=== PATIENT | male | born 1980 | race Caucasian/White ===

== ENCOUNTER 2022-05-07 12:40 | Emergency (ER) | payer OTHER, MEDICAID ==
[~2022-05-07] VITALS: Ht 175.3 cm; Wt 132.0 kg
[2022-05-07 13:10] VITALS: BP_SYST 117
[2022-05-07] MEDS ORDERED: IBUP-1971 PO ×2 (13:21→13:22)
[2022-05-07] MEDS ORDERED: KETOROLAC TROMETHAMINE 60 MG/2 ML VIAL IM ONE (13:30)
[2022-05-07] MEDS ORDERED: HYDROcodone/ACETAMIN 10-325 MG TAB PO ONE (13:30)
--- NOTE | 2022-05-07 13:37 | NUR ---
DR JONES IN TRIAGE FOR EXAM
[2022-05-07] MEDS ORDERED: HYDR-3917 PO (14:12)
--- NOTE | 2022-05-07 14:13 | NUR ---
PT BACK FROM XRAY, PLACED IN CHAIR 1, MEDICATED ORDERED.
--- NOTE | 2022-05-07 15:38 | NUR ---
Patient given written and verbal discharge instructions and verbalizes understanding. ER MD discussed with patient the results and treatment provided. Patient in stable condition. ID arm band removed. Rx of NORCO, IBUPROFEN given. Patient educated on pain management and to follow up with PMD. Pain Scale . Opportunity for questions provided and answered. Medication side effect fact sheet provided.
[2022-05-07 15:39] VITALS: BP_SYST 128
== END 2022-05-07 15:38 | disposition home or self-care (01) ==
LOC: SED 12:40
DX: M54.50 Low back pain, unspecified (principal); G89.29 Other chronic pain; M25.561 Pain in right knee; Z88.0 Allergy status to penicillin; Z79.899 Other long term (current) drug therapy
CPT/HCPCS: 99283; 72100; 73560; 96372; J1885

== ENCOUNTER 2022-06-06 00:32 | Inpatient (IN) | payer OTHER, MEDICAID ==
[~2022-06-06] VITALS: Ht 175.3 cm; Wt 129.3 kg
[~2022-06-06 00:32] MED LIST: HYDR-3917 PO; IBUP-1971 PO
[2022-06-06 00:50] VITALS: BP_SYST 182
[2022-06-06] MEDS ORDERED: CYCLOBENZAPRINE HCL 10 MG TABLET (FLEXERIL) PO ONE (02:00)
[2022-06-06] MEDS ORDERED: KETOROLAC TROMETHAMINE 30 MG VIAL IM ONE (02:00)
[2022-06-06] MEDS ORDERED: ACETAMINOPHEN 500 MG TABLET PO ONE (02:00)
[2022-06-06] MEDS ORDERED: OXYCODONE/ACETAMINOPHEN 5-325 TABLET PO ONE (02:00)
[2022-06-06] MEDS ORDERED: LIDOCAINE PATCH 5% 1 EA TP ONE (02:00)
[2022-06-06] MEDS ORDERED: MORPHINE 4 MG INJ. 4 MG/ML VIAL IVP ONE (03:30)
[2022-06-06 03:43] LABS: BASOPHILS # (AUTO) 0.1 K/uL (0.0-0.2); BASOPHILS % (AUTO) 0.7 % (0.0-2.0); EOSINOPHILS # (AUTO) 0.1 K/uL (0.0-0.4); EOSINOPHILS % (AUTO) 1.7 % (0.0-4.0); HEMATOCRIT 44.4 % (36-54); HEMOGLOBIN 14.8 g/dL (14.0-18.0); LYMPHOCYTES # (AUTO) 2.1 K/uL (1.0-5.5); LYMPHOCYTES % (AUTO) 25.7 % (20.5-51.5); MEAN CORPUSCULAR HEMOGLOBIN 30 pg (27-31); MEAN CORPUSCULAR HGB CONC 33 % (32-36); MEAN CORPUSCULAR VOLUME 89 fL (79.0-98.0); MONOCYTES # (AUTO) 0.8 K/uL (0.0-1.0); MONOCYTES % (AUTO) 10.1 % (1.7-9.3); NEUTROPHILS # (AUTO) 5.1 K/uL (1.8-7.7); NEUTROPHILS % (AUTO) 61.8 % (40.0-70.0); PLATELET COUNT (AUTO) 216 K/uL (130-430); RED BLOOD CELL COUNT(AUTO) 4.99 MIL/uL (4.2-6.2); RED CELL DISTRIBUTION WIDTH 13.7 % (9.0-15.0); WHITE BLOOD COUNT (AUTO) 8.2 K/uL (4.8-10.8)
[2022-06-06 03:47] LABS: ERYTHROCYTE SEDIMENTATION RATE 15 MM/HR (0-15)
[2022-06-06 03:54] LABS: CALCIUM 8.5 mg/dL (8.4-11.0); CREATININE 0.84 mg/dL (0.55-1.30)
[2022-06-06 03:58] LABS: ALBUMIN 3.2 g/dL (3.4-4.8); C-REACTIVE PROTEIN QUANT 1.4 mg/dL (0-0.5); TOTAL BILIRUBIN 0.7 mg/dL (0.0-1.0)
[2022-06-06 04:04] LABS: BILIRUBIN,URINE NEGATIVE (NEGATIVE); BLOOD, URINE TRACE (NEGATIVE); COLOR,URINE YELLOW (YELLOW); GLUCOSE,URINE 3+ (NEGATIVE); KETONES,URINE NEGATIVE (NEGATIVE); LEUKOCYTE ESTERASE ,URINE TRACE (NEGATIVE); NITRITE, URINE NEGATIVE (NEGATIVE); PROTEIN URINE NEGATIVE (NEGATIVE); UROBILINOGEN,URINE 0.2 (0.2-1.0)
[2022-06-06 04:05] LABS: CLARITY/URINE SLIGHTLY CLOUDY (CLEAR)
[2022-06-06 04:26] LABS: BACTERIA,URINE FEW /HPF (None Seen); WBC,URINE 50-80 /HPF (0-3)
[2022-06-06] MEDS ORDERED: cefTRIAXone 1 GM in D5W 50 ML IV ONE (04:45)
[2022-06-06 05:06] LABS: BARBITURATE, URINE NEGATIVE (NEG <=200); BENZODIAZEPINE, URINE NEGATIVE (NEG <=150); CANNABINOID, URINE NEGATIVE (NEG <=50); COCAINE, URINE NEGATIVE (NEG <=150); METHAMPHETAMINES SCREEN,URINE NEGATIVE (NEG <=500); OPIATE, URINE NEGATIVE (NEG <=100); PHENCYCLIDINE SCREEN,URINE NEGATIVE (NEG <=25); UR TRICYCLIC ANTIDEPRESSANTS NEGATIVE (NEG <=300); URINE AMPHETAMINE NEGATIVE (NEG <=500); URINE METHADONE NEGATIVE (NEG <=200); URINE OXYCODONE SCREEN POSITIVE (NEG <=100); URINE PROPOXYPHENE SCREEN NEGATIVE (NEG <=300)
[2022-06-06] MEDS ORDERED: cefTRIAXone 1 GM VIAL ONE (05:07)
[2022-06-06] MEDS: MORPHINE 4 MG INJ. 4 MG/ML VIAL IVP PRN ×3 (07:42→21:28)
[2022-06-06 09:47] VITALS: BP_SYST 138
[2022-06-06 09:51] VITALS: BP_SYST 138
[2022-06-06] MEDS: LIDOCAINE PATCH 5% 1 EA TP SCH (12:00)
[2022-06-06] MEDS ORDERED: LORazepam 2 MG/ML VIAL IVP PRN (12:15)
[2022-06-06] MEDS ORDERED: ONDANSETRON HCL 4 MG/2 ML VIAL IVP PRN (12:15)
[2022-06-06] MEDS ORDERED: NALOXONE HCL 0.4 MG/ML AMP (NARCAN) IVP PRN (12:15)
[2022-06-06] MEDS ORDERED: NORMAL SALINE 5 ML DISP.SYRIN IVF SCH (14:00)
[2022-06-06] MEDS: NORMAL SALINE 5 ML DISP.SYRIN IVF SCH ×2 (14:15→20:46)
[2022-06-06] MEDS: cefTRIAXone 1 GM in D5W 50 ML IV SCH (14:20)
[2022-06-06 14:28] VITALS: BP_SYST 166
[2022-06-06] MEDS: OXYCODONE/ACETAMINOPHEN 5-325 TABLET PO PRN (17:34)
[2022-06-06 17:37] VITALS: BP_SYST 156
[2022-06-07] VITALS: BP_SYST 149
[2022-06-07] MEDS: MORPHINE 4 MG INJ. 4 MG/ML VIAL IVP PRN ×4 (01:30→20:22)
[2022-06-07 05:22] VITALS: BP_SYST 145
[2022-06-07] MEDS: NORMAL SALINE 5 ML DISP.SYRIN IVF SCH ×3 (05:33→20:23)
[2022-06-07 06:29] LABS: BASOPHILS # (AUTO) 0.1 K/uL (0.0-0.2); BASOPHILS % (AUTO) 1.3 % (0.0-2.0); EOSINOPHILS # (AUTO) 0.2 K/uL (0.0-0.4); EOSINOPHILS % (AUTO) 2.3 % (0.0-4.0); HEMATOCRIT 45.2 % (36-54); HEMOGLOBIN 15.2 g/dL (14.0-18.0); LYMPHOCYTES # (AUTO) 1.9 K/uL (1.0-5.5); LYMPHOCYTES % (AUTO) 25.2 % (20.5-51.5); MEAN CORPUSCULAR HEMOGLOBIN 30 pg (27-31); MEAN CORPUSCULAR HGB CONC 34 % (32-36); MEAN CORPUSCULAR VOLUME 89 fL (79.0-98.0); MONOCYTES # (AUTO) 0.7 K/uL (0.0-1.0); MONOCYTES % (AUTO) 8.4 % (1.7-9.3); NEUTROPHILS # (AUTO) 4.9 K/uL (1.8-7.7); NEUTROPHILS % (AUTO) 62.8 % (40.0-70.0); PLATELET COUNT (AUTO) 210 K/uL (130-430); RED BLOOD CELL COUNT(AUTO) 5.06 MIL/uL (4.2-6.2); RED CELL DISTRIBUTION WIDTH 13.7 % (9.0-15.0); WHITE BLOOD COUNT (AUTO) 7.7 K/uL (4.8-10.8)
[2022-06-07 06:51] LABS: ALBUMIN 2.9 g/dL (3.4-4.8); CALCIUM 8.5 mg/dL (8.4-11.0); CREATININE 0.68 mg/dL (0.55-1.30); PHOSPHORUS 3.9 mg/dL (2.7-4.5); TOTAL BILIRUBIN 1.1 mg/dL (0.0-1.0)
[2022-06-07] MEDS: LIDOCAINE PATCH 5% 1 EA TP SCH (08:50)
[2022-06-07 08:51] VITALS: BP_SYST 153
[2022-06-07] MEDS: KETOROLAC TROMETHAMINE 30 MG VIAL IVP PRN ×2 (09:01→17:57)
[2022-06-07 12:00] VITALS: BP_SYST 146
[2022-06-07] MEDS: cefTRIAXone 1 GM in D5W 50 ML IV SCH (14:45)
[2022-06-07 16:00] VITALS: BP_SYST 148
[2022-06-07] MEDS: INSULIN REGULAR, HUMAN 100 UNITS/ML, 3 ML VIAL (humuLIN R) SUBCUT PRN ×2 (17:30→20:21)
[2022-06-07] MEDS: metFORMIN HCL 500 MG TABLET PO SCH (17:56)
[2022-06-07 20:00] VITALS: BP_SYST 147
[2022-06-08] VITALS: BP_SYST 142
[2022-06-08] MEDS: MORPHINE 4 MG INJ. 4 MG/ML VIAL IVP PRN ×5 (00:54→22:12)
[2022-06-08] MEDS: NORMAL SALINE 5 ML DISP.SYRIN IVF SCH ×3 (06:03→22:12)
[2022-06-08] MEDS: INSULIN REGULAR, HUMAN 100 UNITS/ML, 3 ML VIAL (humuLIN R) SUBCUT PRN ×4 (06:04→20:20)
[2022-06-08 06:36] LABS: BASOPHILS % (AUTO) 0.5 % (0.0-2.0); EOSINOPHILS # (AUTO) 0.2 K/uL (0.0-0.4); EOSINOPHILS % (AUTO) 2.2 % (0.0-4.0); HEMATOCRIT 45.1 % (36-54); HEMOGLOBIN 15.2 g/dL (14.0-18.0); LYMPHOCYTES # (AUTO) 1.9 K/uL (1.0-5.5); LYMPHOCYTES % (AUTO) 22.8 % (20.5-51.5); MEAN CORPUSCULAR HEMOGLOBIN 30 pg (27-31); MEAN CORPUSCULAR HGB CONC 34 % (32-36); MEAN CORPUSCULAR VOLUME 89 fL (79.0-98.0); MONOCYTES # (AUTO) 0.7 K/uL (0.0-1.0); NEUTROPHILS # (AUTO) 5.5 K/uL (1.8-7.7); NEUTROPHILS % (AUTO) 66.5 % (40.0-70.0); PLATELET COUNT (AUTO) 219 K/uL (130-430); RED BLOOD CELL COUNT(AUTO) 5.09 MIL/uL (4.2-6.2); RED CELL DISTRIBUTION WIDTH 13.6 % (9.0-15.0); WHITE BLOOD COUNT (AUTO) 8.3 K/uL (4.8-10.8)
[2022-06-08 06:56] LABS: C-REACTIVE PROTEIN QUANT 1.6 mg/dL (0-0.5); CALCIUM 8.4 mg/dL (8.4-11.0); CREATININE 0.77 mg/dL (0.55-1.30)
[2022-06-08 08:00] VITALS: BP_SYST 145
[2022-06-08 08:46] LABS: ERYTHROCYTE SEDIMENTATION RATE 16 MM/HR (0-15)
[2022-06-08] MEDS: LIDOCAINE PATCH 5% 1 EA TP SCH (10:06)
[2022-06-08] MEDS: IBUPROFEN 800 MG TABLET PO PRN ×2 (10:20→18:07)
[2022-06-08] MEDS: OXYCODONE/ACETAMINOPHEN 5-325 TABLET PO PRN ×2 (10:22→20:28)
[2022-06-08] MEDS: metFORMIN HCL 500 MG TABLET PO SCH ×2 (11:49→18:07)
[2022-06-08 12:18] VITALS: BP_SYST 144
[2022-06-08] MEDS: cefTRIAXone 1 GM in D5W 50 ML IV SCH (13:44)
[2022-06-08] MEDS: KETOROLAC TROMETHAMINE 30 MG VIAL IVP PRN (13:45)
[2022-06-08] MEDS: HYDROcodone/ACETAMIN 5-325 MG TAB (NORCO/ VICODIN) PO PRN (13:46)
[2022-06-08 17:10] VITALS: BP_SYST 147
[2022-06-08 20:00] VITALS: BP_SYST 158
[2022-06-09 01:25] VITALS: BP_SYST 147
[2022-06-09] MEDS: MORPHINE 4 MG INJ. 4 MG/ML VIAL IVP PRN ×2 (02:19→06:17)
[2022-06-09 05:48] LABS: BASOPHILS % (AUTO) 0.4 % (0.0-2.0); EOSINOPHILS # (AUTO) 0.1 K/uL (0.0-0.4); EOSINOPHILS % (AUTO) 1.9 % (0.0-4.0); HEMOGLOBIN 14.4 g/dL (14.0-18.0); LYMPHOCYTES # (AUTO) 1.9 K/uL (1.0-5.5); LYMPHOCYTES % (AUTO) 24.5 % (20.5-51.5); MEAN CORPUSCULAR HEMOGLOBIN 30 pg (27-31); MEAN CORPUSCULAR HGB CONC 33 % (32-36); MEAN CORPUSCULAR VOLUME 89 fL (79.0-98.0); MONOCYTES # (AUTO) 0.8 K/uL (0.0-1.0); MONOCYTES % (AUTO) 10.5 % (1.7-9.3); NEUTROPHILS % (AUTO) 62.7 % (40.0-70.0); PLATELET COUNT (AUTO) 217 K/uL (130-430); RED BLOOD CELL COUNT(AUTO) 4.84 MIL/uL (4.2-6.2); RED CELL DISTRIBUTION WIDTH 13.5 % (9.0-15.0); WHITE BLOOD COUNT (AUTO) 7.9 K/uL (4.8-10.8)
[2022-06-09 06:04] LABS: ALBUMIN 2.7 g/dL (3.4-4.8); C-REACTIVE PROTEIN QUANT 2.5 mg/dL (0-0.5); CALCIUM 8.3 mg/dL (8.4-11.0); CREATININE 1.02 mg/dL (0.55-1.30); TOTAL BILIRUBIN 0.7 mg/dL (0.0-1.0)
[2022-06-09 06:13] LABS: ERYTHROCYTE SEDIMENTATION RATE 14 MM/HR (0-15)
[2022-06-09] MEDS: INSULIN REGULAR, HUMAN 100 UNITS/ML, 3 ML VIAL (humuLIN R) SUBCUT PRN (06:16)
[2022-06-09] MEDS: NORMAL SALINE 5 ML DISP.SYRIN IVF SCH ×2 (06:16→14:54)
[2022-06-09 08:00] VITALS: BP_SYST 157
[2022-06-09] MEDS: metFORMIN HCL 500 MG TABLET PO SCH ×2 (09:07→14:58)
[2022-06-09] MEDS: IBUPROFEN 800 MG TABLET PO PRN (09:08)
[2022-06-09] MEDS: OXYCODONE/ACETAMINOPHEN 5-325 TABLET PO PRN (09:09)
[2022-06-09] MEDS: LIDOCAINE PATCH 5% 1 EA TP SCH (09:10)
[2022-06-09 14:24] VITALS: BP_SYST 129
[2022-06-09] MEDS: HYDROcodone/ACETAMIN 5-325 MG TAB (NORCO/ VICODIN) PO PRN (14:59)
[2022-06-09] MEDS: KETOROLAC TROMETHAMINE 30 MG VIAL IVP PRN (15:00)
[2022-06-09] MEDS ORDERED: Lidocaine Patch 5% TP (19:42)
[2022-06-09] MEDS ORDERED: METF-379 PO (19:42)
[2022-06-09] MEDS ORDERED: HYDR-3921 PO (19:46)
== END 2022-06-09 19:45 | disposition home or self-care (01) | DRG 552 ==
LOC: SED 00:32 → SMU 06:21
PROVIDERS: ADMIT Internal Medicine; ATTEND Internal Medicine
DX: M54.16 Radiculopathy, lumbar region (principal); G89.4 Chronic pain syndrome; Z20.822 Contact with and (suspected) exposure to COVID-19; E88.09 Other disorders of plasma-protein metabolism, not elsewhere classified; E11.65 Type 2 diabetes mellitus with hyperglycemia
CPT/HCPCS: 36415; 72131; 76376; 80048; 80053; 80307; 81000; 83735; 84100; 85025; 85651-TC; 86140; 87086; 97110-GP; 97112-GP; 97116-GP; 97530-GP; 99285; J0696; J1885; J2270; J2405; J7060